=== PATIENT | male | born 1970 | race Caucasian/White ===

== ENCOUNTER → 2016-11-25 | Outpatient (CLI) | payer BC ==
--- NOTE | 2016-11-25 17:21 | CONS ---
DATE OF CONSULTATION: 11/25/2016 CONSULTATION/NEW PATIENT EVALUATION 45-year-old gentleman has been evaluated in the sleep center for obstructive sleep apnea-hypopnea syndrome. HISTORY OF PRESENT ILLNESS/SLEEP-WAKE EVALUATION: The patient had a sleep study done in another institution about 6 years ago and was recommended treatment with CPAP but was not able to tolerate CPAP. SLEEP SCHEDULE: Presently his sleep schedule on working days is from 1:00 a.m. until 11:00 a.m., on weekends from about 2:00 a.m. until noon. FALLING ASLEEP: No problem with falling asleep according to the patient. He has a TV set in bedroom. DURING SLEEP: He sleeps on the side position or stomach position. He snores, has episodes of stopped breathing during the sleep. He has episodes of choking and gasping for air. DURING THE DAY/WAKE STATE: In the morning he wakes up tired, has difficulties to pay attention, problem with concentration and depression. [place] Sleepiness Scale is 9. PAST MEDICAL HISTORY: Positive for depression. MEDICATIONS: Zoloft, Abilify, bupropion. PAST SURGICAL HISTORY: None. SOCIAL HISTORY: Positive for smoking for about 15 years ago, presently using an electrical cigarettes. Alcohol consumption, none. REVIEW OF SYSTEMS: Sleepiness during the day, snoring and awakenings from sleep with gasping for air. No fevers. No double vision. No recent chest pain. No shortness of breath. No abdominal pain. No bleeding episodes. No blood in urine. No seizure episodes. Positive history of hypnagogic hallucinations. FAMILY HISTORY: Positive for snoring. PHYSICAL EXAMINATION: GENERAL: A pleasant 45-year-old gentleman without distress. VITAL SIGNS: BP 122/85, HR 104, RR 16, height 6 foot 0. Weight 263, body mass index 35.6. Neck 17-3/4 inches in circumference. Temperature 97.0. Oxygen saturation at room air 95%. HEENT: PERRLA, EOMI. Evaluation of oropharynx showed of retrognathia about 10 mm, extremely low position of soft palate. Mallampati IV. Restriction of nasal breathing. NECK: Supple. No JVD. Thyroid is not palpable. LUNGS: Clear to percussion and to auscultation. Good air exchange. No wheezing or rhonchi. HEART: S1, S2 regular. No murmurs, gallops or rubs. ABDOMEN: Obese. Soft and nontender. Bowel sounds are present. No organomegaly appreciated. EXTREMITIES: No clubbing or cyanosis. SHAKE FEEDER: Awake, alert, and oriented x3. Cranial nerves 2 to 7 intact. There is no fasciculation or atrophy noted. No focal deficits observed. IMPRESSION: 1. Snoring, witnessed episodes of stopped breathing during the sleep, extremely low position of soft palate, restriction of nasal breathing, retrognathia, history of obstructive sleep apnea documented in the past, obstructive sleep apnea-hypopnea syndrome. 2. Obesity; body mass index 35.6. 3. Depression. 4. Restriction of nasal breathing. 5. 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 PLAN: 1. Polysomnography for evaluation of patient's breathing during sleep. 2. CPAP/BiPAP titration if sleep study confirms obstructive sleep apnea-hypopnea syndrome. 3. Preferable position during sleep on the side. 4. No driving if patient feels any sleepiness. Patient is aware of civil and criminal liability for unsafe driving. 5. I will see patient for follow-up visit to explain results of the testing and following plan. Sincerely, Misbah Higgins MD, PhD, FAASM. Diplomat of [place] [employer], Sleep Medicine Board by [place] [employer] [place] [employer] [facility] [place]
== END | disposition home or self-care (01) ==
LOC: SLEEP 13:49
PROVIDERS: ATTEND Internal Medicine
DX: G47.33 Obstructive sleep apnea (adult) (pediatric) (principal); E66.9 Obesity, unspecified; Z68.35 Body mass index [BMI] 35.0-35.9, adult; F32.9 Major depressive disorder, single episode, unspecified; M26.19 Other specified anomalies of jaw-cranial base relationship; F17.210 Nicotine dependence, cigarettes, uncomplicated; Z79.899 Other long term (current) drug therapy
CPT/HCPCS: 99211

== ENCOUNTER → 2017-01-17 | Outpatient (CLI) | payer BC ==
[2017-01-17 14:42] LABS: CH 30.4; CHCM 33.5; HCT 44.8 % (39.0-53.0); HDW 2.62; HGB 14.5 gm/dL (13.0-17.5); MCH 29.6 pg (25.0-35.0); MCHC 32.4 g/dL (31.0-37.0); MCV 91.3 fL (80.0-100.0); Mean Platelet Volume 7.3; RBC 4.91 m/uL (4.30-5.90); RDW 13.4 % (11.5-15.5); WBC 9.2 k/uL (3.8-10.6)
== END | disposition home or self-care (01) ==
LOC: LABPAT 14:15
PROVIDERS: ATTEND Anesthesiology
DX: Z01.812 Encounter for preprocedural laboratory examination (principal)
CPT/HCPCS: 36415; 85027